=== PATIENT | female | born 1975 | race Caucasian/White ===

== ENCOUNTER 2019-04-27 01:51 | Day surgery (SDC) | payer BC, SELFPAY ==
[2019-04-20 14:05] VITALS: BMI 39.5
--- NOTE | 2019-04-27 09:53 | WPDANESEPPF ---
Anes - Initial Pre Proc Eval Procedure: Operation Date: 04/27/19 10:45 Proposed Procedures p Screening Colonoscopy - Quinton Maki MD Date/Time: 04/27/19 09:53 Surgeon: Quinton Maki MD Pre Op Diagnosis: Neoplasm Screening Patient Data Age: 43 Gender: F Height: 5 ft 4 in Weight: 104.5 kg Allergies Allergy/AdvReac Type Severity Reaction Status Date / Time No Known Allergies Verified 05/11/09 09:39 Home Medications Medication Instructions Recorded Confirmed Type albuterol sulfate 0.63 mg/3 mL 0.63 mg INHALATION Q4-6H PRN 03/28/19 04/20/19 History solution for nebulization diclofenac sodium 75 mg 75 mg PO BID 03/28/19 04/20/19 History tablet,delayed release hydroxyzine HCl 25 mg tablet 25 mg PO TID 03/28/19 04/20/19 History lamotrigine 200 mg tablet 200 mg PO DAILY 03/28/19 04/20/19 History levothyroxine 25 mcg tablet 25 mcg PO DAILY 03/28/19 04/20/19 History liothyronine 5 mcg tablet 5 mcg PO DAILY 03/28/19 04/20/19 History spironolactone 25 mg tablet 25 mg PO DAILY 03/28/19 04/20/19 History Patient hx anesthesia problems: none Family hx anesthesia problems: none PMFSH Past Medical History Medical History Anemia Arthritis Asthma Cancer Constipation FHx: migraine headaches Heart murmur Hypertension Pencilling of stools Thyroid cancer Surgical History Surgical History delivery delivered H/O thyroidectomy Family History Family History Father Lung cancer Afib Mother Cirrhosis Hypertension Grandparent Throat cancer Grandparent Hypertension Sibling Hypertension Social History Social History Smoking status: Never smoker Alcohol intake: current Drinks per week: 2 Anes - Eval Final PreProcedure Day of Procedure 04/27/19 09:53 Patient weight: obese Heart: regular rate and rhythm Lungs: clear to auscultation Airway: Mallampati scale class II Neurological: alert and oriented Last oral intake: >/= 8 hours ASA classification: III Emergent: no Anesthetic plan: proceed Anesthesia type and monitoring: general GIVS and standard monitoring Informed Consent: The patient's anesthetic plan and its attendant risks and benefits were discussed with the patient/family/POA. Questions were solicited and answers provided to the satisfaction of the patient/family/POA.
[2019-04-27 09:57] VITALS: BP 152/129; PULSE 90; RESP 18; TEMP 36.2; O2SAT 99; BMI 39.6
[2019-04-27] MEDS: LACTATED RINGERS 1,000 ML 150 ML IV CONT (10:12)
--- NOTE | 2019-04-27 10:24 | WPDHPUPDATE1 ---
History and Physical Update Update Date/Time: 04/27/19 10:24 History and Physical has been reviewed, including an updated exam of the patient. There are NO changes in the patient's condition. Risks, benefits, and alternatives have been discussed and questions answered. Patient agrees to proceed with procedure.
[2019-04-27 10:27] VITALS: BP 150/111
[2019-04-27 10:52] VITALS: BP 125/84; PULSE 82; RESP 18; O2SAT 100
[2019-04-27 11:02] VITALS: BP 125/82; PULSE 80; RESP 18; O2SAT 99
[2019-04-27 11:12] VITALS: BP 133/72; PULSE 77; RESP 18; O2SAT 99
== END 2019-04-27 11:25 | disposition home or self-care (01) ==
PROVIDERS: PCP Internal Medicine; Visit Provider Internal Medicine Gastroenterology
PROC: 0DJD8ZZ Inspection of Lower Intestinal Tract, Via Natural or Artificial Opening Endoscopic (ICD-10-PCS; CPT 45378; principal; 2019-04-27 10:45)
DX: Z12.11 Encounter for screening for malignant neoplasm of colon (principal); K63.5 Polyp of colon; K59.00 Constipation, unspecified; R19.5 Other fecal abnormalities; I10 Essential (primary) hypertension; D64.9 Anemia, unspecified; M19.90 Unspecified osteoarthritis, unspecified site; E89.0 Postprocedural hypothyroidism; Z85.850 Personal history of malignant neoplasm of thyroid; E66.9 Obesity, unspecified; Z68.39 Body mass index [BMI] 39.0-39.9, adult
CPT/HCPCS: 45385; 88305; J2704; J7120

== ENCOUNTER 2020-02-03 11:59 | Emergency (ER) | payer BC, SELFPAY ==
[2020-02-03 12:09] VITALS: BP 184/123; PULSE 84; RESP 20; TEMP 35.7; O2SAT 99
--- NOTE | 2020-02-03 12:09 | ED.GENADULT ---
HPI - General Adult General Chief complaint: Unspecified Stated complaint: High BP Source: patient Mode of arrival: ambulatory Limitations: no limitations History of Present Illness HPI narrative: 44 y/o female. PMH includes: Asthma, Thyroid Carcinoma (S/P Thyroidectomy), HTN, Obesity, Constipation. [facility] with acute concerns of high blood pressure at home. Pt reports to have been on Verapamil per her PCP for the past 1 month. However, states to have developed an intolerance and really bad headaches with this medication, so she notes personal non-compliance for the past 1 week. She states to have contacted her PCP to update her provider and see if they can change her medication to something different , but has not yet heard back from the office. She denies OJEDA, dizziness, visual disturbance, or weakness. No CP, palpitations, dyspnea, or edema. Patient states to have done better on Spironolactone historically, and would like to discuss this with her PCP. She states she could not get a return call , so she proceeded to express care instead. No additional acute c/o upon PE. Related Data Home Medications Medication Instructions Recorded Confirmed albuterol sulfate 0.63 mg/3 mL 0.63 mg INHALATION Q4-6H PRN 03/28/19 04/20/19 solution for nebulization diclofenac sodium 75 mg 75 mg PO BID 03/28/19 04/20/19 tablet,delayed release hydroxyzine HCl 25 mg tablet 25 mg PO TID 03/28/19 04/20/19 lamotrigine 200 mg tablet 200 mg PO DAILY 03/28/19 04/20/19 levothyroxine 25 mcg tablet 25 mcg PO DAILY 03/28/19 04/20/19 liothyronine 5 mcg tablet 5 mcg PO DAILY 03/28/19 04/20/19 spironolactone 25 mg tablet 25 mg PO DAILY 03/28/19 04/20/19 Allergies Allergy/AdvReac Type Severity Reaction Status Date / Time No Known Allergies Verified 04/27/19 09:55 Review of Systems Review of Systems: Narrative: CONSTITUTIONAL: Denies fever, chills, sweats. EYES: Denies visual changes, redness, discharge. ENT: Denies rhinorrhea, congestion, sore throat, otalgia. CARDIOVASCULAR: Denies chest pain, palpitations, edema. High blood pressure readings. RESPIRATORY: Denies dyspnea, wheezing, cough GASTROINTESTINAL: Denies abdominal pain, nausea, vomiting, diarrhea. GENITOURINARY: Denies dysuria, hematuria, abnormal discharge SKIN: Denies rash or itching. MUSCULOSKELETAL: Denies acute back pain, joint pain, or myalgia. NEUROLOGIC: Denies numbness, or focal weakness. PSYCHIATRIC: Denies anxiety or depression. All systems reviewed & are unremarkable except as noted in HPI and below (HPI. ) [facility] Past Medical History Medical History (Updated 02/03/20 @ 12:29 by LYDIA Katz) Anemia Arthritis Asthma Cancer Constipation FHx: migraine headaches Heart murmur Hypertension Pencilling of stools Thyroid cancer Surgical History Surgical History delivery delivered H/O thyroidectomy Family History Family History Father Lung cancer Afib Mother Cirrhosis Hypertension Grandparent Throat cancer Grandparent Hypertension Sibling Hypertension Social History Social History Smoking status: Never smoker Alcohol intake: current Drinks per week: 2 Comments At the time of my signature I agree with nursing past medical history, surgical, social, and family history. There is no relevant family history pertinent to the presenting complaint. Exam Narrative: Exam Narrative: GENERAL: This is a well-nourished, obese patient, in no apparent distress. HEAD: normocephalic, atraumatic. EYES: PERRL. Sclera clear/white. Vision is grossly intact. EARS: External ears normal, auditory canals clear and without drainage, TMs normal without perforation. Hearing grossly intact. NOSE: External nose normal with no obvious nasal discharge, nares
[2020-02-03] MEDS: cloNIDine HCL 0.1 MG TABLET PO (12:32)
== END 2020-02-03 13:39 | disposition home or self-care (01) ==
PROVIDERS: Emergency Provider Nurse Practitioner Adult Health; PCP Internal Medicine
DX: I10 Essential (primary) hypertension (principal); J45.909 Unspecified asthma, uncomplicated; M19.90 Unspecified osteoarthritis, unspecified site; R01.1 Cardiac murmur, unspecified; Z85.850 Personal history of malignant neoplasm of thyroid; E89.0 Postprocedural hypothyroidism
CPT/HCPCS: 99213; A9270; G0463

== ENCOUNTER 2020-06-08 00:07 | Emergency (ER) | payer SELFPAY ==
--- NOTE | ~2020-06-08 | CT_ITS ---
EXAMINATION: CT abdomen pelvis wo con DATE: 06/08/2020 01:14 INDICATION: Right flank pain. TECHNIQUE: Computed tomography (CT) of the abdomen and pelvis was performed without intravenous contr ast. Automated exposure control and iterative reconstruction technique were employed. The dose-length product was 1037.54 mGy-cm. COMPARISON: None. FINDINGS: The visualized portions of the lung bases demonstrate a calcified left lung nodule, consist ent with old granulomatous disease. No pleural effusion. The heart size is normal. No pericardial eff usion. There are cysts in the liver measuring up to 8 mm. The spleen, gallbladder, pancreas, adrenal glands, and left kidney are normal. There is mild right hydronephrosis and hydroureter. 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 There is a 1 mm stone at right ureterovesicular junction. There is an intrauterine device in abnormally low position. One prong pierces the full thickness of the javi metrium. There are changes of gastric bypass procedure. There are no pathologically enlarged lymph no palak. There is no free intraperitoneal fluid. There is thoracolumbar levocurvature and mild spondylosi s. IMPRESSION: 1. 1 mm stone at right ureterovesicular junction with mild right hydronephrosis. 2. Abnormally low position of the intrauterine device with one prong piercing the full thickness of t he myometrium. Reviewed, dictated and finalized at location A. IMPRESSION: 1. 1 mm stone at right ureterovesicular junction with mild right hydronephrosis . 2. Abnormally low position of the intrauterine device with one prong piercing t he full thickness of the myometrium.
[2020-06-08 00:14] VITALS: BP 137/96; PULSE 66; RESP 22; TEMP 36.4; O2SAT 100
[2020-06-08] MEDS: SODIUM CHLORIDE 0.9% IV 1,000 ML 999 ML IV CONT (00:27)
[2020-06-08] MEDS: KETOROLAC 30 MG/ML VIAL (*BKC) IV PUSH (00:27)
[2020-06-08] MEDS: ONDANSETRON INJ 4 MG/2 ML VIAL IV PUSH (00:30)
[2020-06-08 00:51] LABS: Basophils Absolute Auto 0.02 K/mm3 (0.00-0.10); Basophils Percent Auto 0.3 % (0.0-1.0); Eosinophils Absolute Auto 0.24 K/mm3 (0.02-0.50); Eosinophils Percent Auto 3.8 % (1.0-6.0); Hematocrit 41.4 % (35.0-49.0); Hemoglobin 13.7 g/dL (12.0-15.0); Immature Granulocyte Absolute 0.05 K/mm3 (0.00-0.00); Immature Granulocyte Percent A 0.8 % (0.0-0.0); Lymphocytes Absolute Auto 2.03 K/mm3 (1.10-4.50); Lymphocytes Percent Auto 31.8 % (18.0-42.0); Mean Corpuscular HGB Conc 33.1 g/dL (32.0-36.0); Mean Corpuscular Hemoglobin 29.2 pg (27.0-31.0); Mean Corpuscular Volume 88.3 fL (78.0-102.0); Mean Platelet Volume 10.7 fl (9.2-11.8); Monocytes Absolute Auto 0.44 K/mm3 (0.10-0.90); Monocytes Percent Auto 6.9 % (2.0-11.0); Neutrophils Absolute Auto 3.6 K/mm3 (1.7-7.2); Neutrophils Percent Auto 56.4 % (50.0-70.0); Platelet Count Result 235 K/mm3 (150-420); Red Blood Count 4.69 M/mm3 (4.20-5.40); Red Cell Distribution Width 15.1 % (11.6-14.4); White Blood Count 6.4 K/mm3 (4.8-10.8)
[2020-06-08 00:58] LABS: Alanine Aminotransferase 83 U/L (14-59); Albumin Level 3.7 g/dL (3.4-5.0); Alkaline Phosphatase 62 U/L (46-116); Anion Gap 9 mmol/L (8-16); Aspartate Amino Transferase 42 U/L (15-37); Blood Urea Nitrogen 10 mg/dL (7-18); Carbon Dioxide 27 mmol/L (21-32); Chloride 105 mmol/L (98-108); Estimated CRCL calculation 84 ml/min; Estimated Glomerular Filt Rate > 60; Glucose 136 mg/dL (70-99); Lipase 545 U/L (73-393); Osmolality Calculated 293 mOsm/kg (285-295); Potassium 2.7 mmol/L (3.5-5.1); Sodium 141 mmol/L (136-145); Total Protein 6.7 g/dL (6.4-8.2)
[2020-06-08 01:03] LABS: Lactic Acid Reflex 2.1 mmol/L (0.4-2.0)
[2020-06-08 01:12] VITALS: BP 156/105; PULSE 55; RESP 16; O2SAT 98
--- NOTE | 2020-06-08 01:48 | ED.BACK ---
HPI - Back Pain/Injury General Chief Complaint: Back Pain/Injury Stated Complaint: Pain Source: patient and family Mode of arrival: ambulatory Limitations: no limitations History of Present Illness HPI Narrative: Is a 44-year-old female presents with right flank pain that she describes as sharp radiating into her right groin that she rates at about a 9/10 no fever chills no chest pain no shortness of breath, patient has some nausea with no vomiting, no shortness of breath. The pain started few hours ago and has intensified localizing into her right flank area and radiating into his right right groin no history of kidney stones with the patient does have a history of hypothyroidism and recent weight loss surgery. MD elicited complaint: back pain Onset (ago): hour(s) Timing: intermittent Severity: severe Pain scale (0-10): 9 Similar Symptoms Previously: No Quality: sharp Location: right flank Radiation: groin Exacerbating factors: none Relieving factors: none Related Data Home Medications Medication Instructions Recorded Confirmed albuterol sulfate 0.63 mg/3 mL 0.63 mg INHALATION Q4-6H PRN 03/28/19 06/08/20 solution for nebulization hydroxyzine HCl 25 mg tablet 25 mg PO TID 03/28/19 06/08/20 lamotrigine 200 mg tablet 200 mg PO DAILY 03/28/19 06/08/20 levothyroxine 25 mcg tablet 25 mcg PO DAILY 03/28/19 06/08/20 liothyronine 5 mcg tablet 5 mcg PO DAILY 03/28/19 06/08/20 lisinopril 10 mg PO DAILY 06/08/20 06/08/20 omeprazole 20 mg PO DAILY 06/08/20 06/08/20 Allergies Allergy/AdvReac Type Severity Reaction Status Date / Time No Known Allergies Verified 04/27/19 09:55 Review of Systems Review of Systems: All systems reviewed & are unremarkable except as noted in HPI and below PMFSH Past Medical History Medical History (Updated 06/08/20 @ 01:53 by Nicko Demarco MD) Anemia Arthritis Asthma Cancer Constipation FHx: migraine headaches Heart murmur Hypertension Pencilling of stools Thyroid cancer Surgical History Surgical History delivery delivered H/O thyroidectomy Family History Family History Father Lung cancer Afib Mother Cirrhosis Hypertension Grandparent Throat cancer Grandparent Hypertension Sibling Hypertension Social History Social History Smoking status: Never smoker Alcohol intake: current Drinks per week: 2 Exam Const: General: no acute distress Orientation/consciousness: patient oriented x3 HENMT: Head: normal to inspection Eyes: Conjunctivae: conjunctivae normal Pupils: Equal, round and reactive pupils present Neck: Neck: normal visual inspection Chest: Chest palpation & inspection: normal inspection of the chest Resp: Effort & Inspection: normal respiratory effort Cardio: Rate: regular rate Rhythm: regular rhythm GI: Auscultation: normal bowel sounds : General: Yes CVA tenderness Back/Spine/Pelvis: Back: CVA tenderness Skin: General skin exam: normal color Rashes: no rashes Neuro: General: patient oriented x3 and moves all extremities Extrem: General: normal to inspection and no pedal edema Psych: Mental Status: mental status grossly normal Course Course Emergency Course: Reassessment of patient, pain has improved down to about 3/10 with some IV Toradol and IV fluids, reviewed CT findings and lab findings, patient has and lower potassium at 2.7 inform patient that we will be giving her some IV potassium with IV fluids. Vital Signs Vital signs: Vital Signs Temperature 36.4 C 06/08/20 00:14 Pulse Rate 66 06/08/20 00:14 Respiratory Rate 22 H 06/08/20 00:14 Blood Pressure 137/96 H 06/08/20 00:14 Pulse Oximetry 100 06/08/20 00:14 Temperature 36.4 C 06/08/20 00:14 Pulse Rate 55 L 06/08/20 01:12 Respiratory Rate 16 06/08/20
[2020-06-08] MEDS: POTASSIUM CHLORIDE 20 MEQ TABLET 40 MEQ PO (02:03)
[2020-06-08] MEDS: KCL 20 MEQ/SW 100 ML 100 ML 50 MEQ IVPB (02:03)
[2020-06-08] MEDS: SODIUM CHLORIDE 0.9% IV 500 ML 999 ML IV CONT (02:04)
[2020-06-08 02:05] VITALS: BP 119/86; PULSE 70; RESP 16; O2SAT 97
--- NOTE | 2020-06-08 02:10 | PC.NURSE ---
Patient resting in bed, VSS. Her pain has improved and she was able to provide a urine sample, there was a small hard stone like object noted in the urine sample. Pt is on the bus monitor showing NSR while KCL IV is infusing.
[2020-06-08 02:18] LABS: Add Urine Microscopic? YES; Bilirubin Urine Negative (Negative); Blood Urine 3+ (Negative); Color Urine Yellow (Yellow); Glucose Urine UA Negative (Negative); Ketones Urine 3+ (Negative); Leukocyte Esterase Ur Negative LEU/UL (Negative); Nitrate Urine Negative (Negative); Protein Urine Negative (Negative); Urobilinogen Urine 0.2 mg/dL (0.2-1.0)
[2020-06-08 02:25] LABS: Appearance Urine Sl Cloudy (Clear)
[2020-06-08 02:26] LABS: Mucus Urine Heavy /lpf; RBC Urine 21-50 /hpf (0-2); Squamous Epithelial Cell Urine Moderate /hpf (Few)
[2020-06-08 02:56] VITALS: BP 129/88; PULSE 55; RESP 14; O2SAT 94
[2020-06-08 03:41] LABS: Reflex Lactic Acid Yes or No Add Lactic
[2020-06-08 03:44] VITALS: BP 112/82; PULSE 58; RESP 16; O2SAT 95
[2020-06-08 04:05] VITALS: BP 126/81; PULSE 66; RESP 16; O2SAT 98
== END 2020-06-08 04:17 | disposition home or self-care (01) ==
PROVIDERS: Emergency Provider Emergency Medicine
DX: N20.1 Calculus of ureter (principal); E87.6 Hypokalemia
CPT/HCPCS: 36415; 74176; 80053; 81001; 83605; 83690; 85025; 96361; 96365; 96375; 99283; 99284; A9270; J1885; J2405; J3480; J7030; J7040